=== PATIENT | female | born 1960 | race African-American/Black ===

== ENCOUNTER 2018-04-27 15:06 | Inpatient (IN) | payer OTHER ==
[2018-04-27 16:00] LABS: ADD MAN DIFF? NO
[2018-04-27 16:07] LABS: BASO % 0 % (0-3); EOS # 0.1 x10^3/uL (0.0-0.7); EOS % 1 % (0-3); HEMATOCRIT 38.9 % (36.0-47.0); HEMOGLOBIN 13.5 g/dL (12.0-15.5); LYMPH # 2.3 x10^3/uL (1.0-4.8); LYMPH % 26 % (24-48); MEAN CORPUSCULAR HEMOGLOBIN 32 pg (25-35); MEAN CORPUSCULAR HGB CONC 35 g/dL (31-37); MEAN CORPUSCULAR VOLUME 93 fL (79-100); MONO # 0.7 x10^3/uL (0.0-1.1); MONO % 8 % (0-9); NEUT # 5.8 x10^3uL (1.8-7.7); NEUT % 66 % (31-73); PLATELET COUNT 190 x10^3/uL (140-400); RED BLOOD COUNT 4.17 x10^6/uL (3.50-5.40); RED CELL DISTRIBUTION WIDTH 13.1 % (11.5-14.5); WHITE BLOOD COUNT 8.9 x10^3/uL (4.0-11.0)
[2018-04-27 16:09] LABS: BILIRUBIN,URINE NEGATIVE (NEG); CLARITY,URINE CLEAR; COLOR,URINE YELLOW; GLUCOSE,URINE NEGATIVE (NEG); NITRITE,URINE NEGATIVE (NEG); PH,URINE 7.5; PROTEIN,URINE NEGATIVE (NEG-TRACE)
[2018-04-27] MEDS: ONDANSETRON PF 4 MG/2 ML VIAL. IV (16:09)
[2018-04-27] MEDS: fentaNYL PF VIAL 100 MCG/2 ML VIAL IV ×4 (16:10→23:31)
[2018-04-27 16:19] LABS: ANION GAP 5 (6-14); BLOOD UREA NITROGEN 16 mg/dL (7-20); BUN/CREATININE RATIO 20 (6-20); CALCIUM 9.2 mg/dL (8.5-10.1); CARBON DIOXIDE 31 mmol/L (21-32); CHLORIDE 103 mmol/L (98-107); CREATININE 0.8 mg/dL (0.6-1.0); GFR 90.1; GLUCOSE 90 mg/dL (70-99); POTASSIUM 3.1 mmol/L (3.5-5.1); SODIUM 139 mmol/L (136-145)
[2018-04-27 16:25] LABS: ALBUMIN 3.9 g/dL (3.4-5.0); ALBUMIN/GLOBULIN RATIO 1.2 (1.0-1.7); ALK PHOS 76 U/L (46-116); ALT (SGPT) 29 U/L (14-59); AST (SGOT) 15 U/L (15-37); LIPASE 150 U/L (73-393); TOTAL BILIRUBIN 0.3 mg/dL (0.2-1.0); TOTAL PROTEIN 7.1 g/dL (6.4-8.2)
[2018-04-27 16:28] LABS: BACTERIA,URINE FEW /HPF (0-FEW); RBC,URINE 0 /HPF (0-2); SQUAMOUS EPITHELIAL CELL,UR FEW /LPF; WBC,URINE 0 /HPF (0-4)
[2018-04-27] MEDS: IOHEXOL 300 MG/ML 100ML VIAL. IV (16:42)
[2018-04-27] MEDS ORDERED: CONTRAST GIVEN. MC (16:45)
[2018-04-27] MEDS: POTASSIUM CHLORIDE 20 MEQ TABLET.ER. PO (17:14)
[2018-04-27] MEDS: IV NORMAL SALINE 1000ML BAG 1,000 ML IV (17:15)
[2018-04-27] MEDS ORDERED: ACETAMINOPHEN 325 MG TABLET. PO (17:30)
[2018-04-27] MEDS ORDERED: fentaNYL PF VIAL 100 MCG/2 ML VIAL IV (17:30)
[2018-04-27] MEDS ORDERED: ONDANSETRON PF 4 MG/2 ML VIAL. IV (17:30)
[2018-04-27] MEDS ORDERED: PIP/TAZO PER PHARMACY MC (17:30)
[2018-04-27] MEDS ORDERED: ZOLPIDEM 5 MG TABLET. PO (17:30)
[2018-04-27] MEDS: CIPROFLOXACIN 400MG PREMIX 200 ML IV (17:40)
[2018-04-27] MEDS: oxyCODONE/APAP 5/325 1 TAB TABLET PO (18:40)
[2018-04-27] MEDS: PIPERACILLIN/TAZOBACTAM 3.375 GM in IV NORMAL SALINE 50ML 50 ML IV ×2 (19:36→23:31)
[2018-04-27] MEDS: POTASSIUM CL 30MEQ D5-0.45NACL 1,000 ML IV (19:36)
[2018-04-27] MEDS: FLUCONAZOLE 100 MG TABLET. PO (21:52)
[2018-04-27] MEDS: LACTOBACILLUS RHAMNOSUS GG 1 CAPSULE. PO (21:52)
[2018-04-27] MEDS: traZODone 100 MG TABLET. PO (21:53)
[2018-04-28] MEDS: fentaNYL PF VIAL 100 MCG/2 ML VIAL IV ×6 (03:14→20:13)
[2018-04-28] MEDS: ONDANSETRON PF 4 MG/2 ML VIAL. IV ×2 (03:24→17:38)
[2018-04-28 05:25] LABS: ADD MAN DIFF? NO
[2018-04-28 05:41] LABS: BASO % 1 % (0-3); EOS # 0.1 x10^3/uL (0.0-0.7); EOS % 1 % (0-3); HEMATOCRIT 35.3 % (36.0-47.0); HEMOGLOBIN 12.1 g/dL (12.0-15.5); LYMPH # 1.2 x10^3/uL (1.0-4.8); LYMPH % 15 % (24-48); MEAN CORPUSCULAR HEMOGLOBIN 33 pg (25-35); MEAN CORPUSCULAR HGB CONC 34 g/dL (31-37); MEAN CORPUSCULAR VOLUME 96 fL (79-100); MONO # 0.7 x10^3/uL (0.0-1.1); MONO % 8 % (0-9); NEUT % 75 % (31-73); PLATELET COUNT 149 x10^3/uL (140-400); RED BLOOD COUNT 3.69 x10^6/uL (3.50-5.40); RED CELL DISTRIBUTION WIDTH 13.2 % (11.5-14.5)
[2018-04-28 05:59] LABS: ALBUMIN 3.4 g/dL (3.4-5.0); ALBUMIN/GLOBULIN RATIO 1.4 (1.0-1.7); ALK PHOS 69 U/L (46-116); ALT (SGPT) 30 U/L (14-59); ANION GAP 9 (6-14); AST (SGOT) 25 U/L (15-37); BLOOD UREA NITROGEN 14 mg/dL (7-20); BUN/CREATININE RATIO 18 (6-20); CALCIUM 8.5 mg/dL (8.5-10.1); CARBON DIOXIDE 26 mmol/L (21-32); CHLORIDE 104 mmol/L (98-107); CREATININE 0.8 mg/dL (0.6-1.0); GFR 90.1; GLUCOSE 125 mg/dL (70-99); POTASSIUM 3.8 mmol/L (3.5-5.1); SODIUM 139 mmol/L (136-145); TOTAL BILIRUBIN 0.6 mg/dL (0.2-1.0); TOTAL PROTEIN 5.8 g/dL (6.4-8.2)
[2018-04-28] MEDS: PIPERACILLIN/TAZOBACTAM 3.375 GM in IV NORMAL SALINE 50ML 50 ML IV ×3 (06:07→17:39)
[2018-04-28] MEDS: LEVOTHYROXINE 25 MCG TABLET. PO (07:42)
[2018-04-28] MEDS: oxyCODONE/APAP 5/325 1 TAB TABLET PO ×2 (07:44→13:00)
[2018-04-28] MEDS: IV NORMAL SALINE 1000ML BAG 1,000 ML IV ×4 (08:45→18:45)
[2018-04-28] MEDS ORDERED: TRIAMTERENE/HCTZ 37.5/25MG TABLET. PO (09:00)
[2018-04-28] MEDS: LACTOBACILLUS RHAMNOSUS GG 1 CAPSULE. PO ×2 (09:55→21:03)
[2018-04-28] MEDS: FLUCONAZOLE 100 MG TABLET. PO (09:55)
[2018-04-28] MEDS: diphenhydrAMINE HCL 25 MG CAPSULE PO (18:42)
[2018-04-28] MEDS: traZODone 50 MG TABLET. PO (21:03)
[2018-04-29] MEDS: PIPERACILLIN/TAZOBACTAM 3.375 GM in IV NORMAL SALINE 50ML 50 ML IV ×4 (00:05→17:33)
[2018-04-29] MEDS: IV NORMAL SALINE 1000ML BAG 1,000 ML IV ×2 (00:08→12:30)
[2018-04-29] MEDS: fentaNYL PF VIAL 100 MCG/2 ML VIAL IV (01:09)
[2018-04-29] MEDS: oxyCODONE/APAP 5/325 1 TAB TABLET PO ×4 (06:11→21:28)
[2018-04-29] MEDS: LEVOTHYROXINE 25 MCG TABLET. PO (06:19)
[2018-04-29 06:52] LABS: ADD MAN DIFF? NO
[2018-04-29 06:57] LABS: BASO % 0 % (0-3); EOS # 0.1 x10^3/uL (0.0-0.7); EOS % 1 % (0-3); HEMATOCRIT 32.6 % (36.0-47.0); HEMOGLOBIN 11.2 g/dL (12.0-15.5); LYMPH % 27 % (24-48); MEAN CORPUSCULAR HEMOGLOBIN 33 pg (25-35); MEAN CORPUSCULAR HGB CONC 34 g/dL (31-37); MEAN CORPUSCULAR VOLUME 96 fL (79-100); MONO # 0.6 x10^3/uL (0.0-1.1); MONO % 8 % (0-9); NEUT # 4.6 x10^3uL (1.8-7.7); NEUT % 63 % (31-73); PLATELET COUNT 143 x10^3/uL (140-400); WHITE BLOOD COUNT 7.4 x10^3/uL (4.0-11.0)
[2018-04-29] MEDS: LACTOBACILLUS RHAMNOSUS GG 1 CAPSULE. PO ×2 (08:13→21:21)
[2018-04-29] MEDS: FLUCONAZOLE 100 MG TABLET. PO (08:13)
[2018-04-29] MEDS: DOCUSATE SODIUM 100 MG CAPSULE. PO (08:13)
[2018-04-29 08:19] LABS: SEDIMENTATION RATE 21 (0-25)
[2018-04-29] MEDS ORDERED: CONTRAST GIVEN. MC (11:00)
[2018-04-29] MEDS: IOHEXOL 240 MG/ML 50ML VIAL. PO (11:00)
[2018-04-29] MEDS: KETOROLAC 30 MG/ML INJ. IV ×2 (11:25→17:32)
[2018-04-29] MEDS: traZODone 50 MG TABLET. PO (21:21)
[2018-04-30] MEDS: KETOROLAC 30 MG/ML INJ. IV (00:18)
[2018-04-30] MEDS: PIPERACILLIN/TAZOBACTAM 3.375 GM in IV NORMAL SALINE 50ML 50 ML IV ×5 (00:18→23:46)
[2018-04-30] MEDS: LEVOTHYROXINE 25 MCG TABLET. PO (07:04)
[2018-04-30] MEDS: FLUCONAZOLE 100 MG TABLET. PO (08:57)
[2018-04-30] MEDS: DOCUSATE SODIUM 100 MG CAPSULE. PO (08:57)
[2018-04-30] MEDS: LACTOBACILLUS RHAMNOSUS GG 1 CAPSULE. PO ×2 (08:57→20:45)
[2018-04-30] MEDS: oxyCODONE/APAP 5/325 1 TAB TABLET PO ×2 (10:32→15:34)
[2018-04-30] MEDS: CIPROFLOXACIN 400MG PREMIX 200 ML IV ×2 (15:39→20:45)
[2018-04-30] MEDS: traZODone 50 MG TABLET. PO (20:45)
[2018-04-30] MEDS: ACETAMINOPHEN 325 MG TABLET. PO (21:33)
[2018-04-30 22:20] LABS: C DIFF BY PCR Negative (Negative)
[2018-05-01] MEDS: PIPERACILLIN/TAZOBACTAM 3.375 GM in IV NORMAL SALINE 50ML 50 ML IV ×2 (05:44→12:00)
[2018-05-01] MEDS: ACETAMINOPHEN 325 MG TABLET. PO (05:44)
[2018-05-01 06:32] LABS: ADD MAN DIFF? NO
[2018-05-01 06:35] LABS: BASO % 0 % (0-3); EOS # 0.1 x10^3/uL (0.0-0.7); EOS % 2 % (0-3); HEMATOCRIT 33.3 % (36.0-47.0); HEMOGLOBIN 11.7 g/dL (12.0-15.5); LYMPH % 43 % (24-48); MEAN CORPUSCULAR HEMOGLOBIN 33 pg (25-35); MEAN CORPUSCULAR HGB CONC 35 g/dL (31-37); MEAN CORPUSCULAR VOLUME 94 fL (79-100); MONO # 0.3 x10^3/uL (0.0-1.1); MONO % 7 % (0-9); NEUT # 2.2 x10^3uL (1.8-7.7); NEUT % 48 % (31-73); PLATELET COUNT 164 x10^3/uL (140-400); RED BLOOD COUNT 3.53 x10^6/uL (3.50-5.40); RED CELL DISTRIBUTION WIDTH 12.6 % (11.5-14.5); WHITE BLOOD COUNT 4.7 x10^3/uL (4.0-11.0)
[2018-05-01] MEDS: LEVOTHYROXINE 25 MCG TABLET. PO (06:53)
[2018-05-01 07:14] LABS: ALBUMIN 3.1 g/dL (3.4-5.0); ALBUMIN/GLOBULIN RATIO 0.9 (1.0-1.7); ALK PHOS 73 U/L (46-116); ALT (SGPT) 39 U/L (14-59); ANION GAP 7 (6-14); AST (SGOT) 27 U/L (15-37); BLOOD UREA NITROGEN 7 mg/dL (7-20); BUN/CREATININE RATIO 8 (6-20); CALCIUM 9.1 mg/dL (8.5-10.1); CARBON DIOXIDE 30 mmol/L (21-32); CHLORIDE 106 mmol/L (98-107); CREATININE 0.9 mg/dL (0.6-1.0); GFR 78.7; GLUCOSE 100 mg/dL (70-99); POTASSIUM 3.6 mmol/L (3.5-5.1); SODIUM 143 mmol/L (136-145); TOTAL BILIRUBIN 0.2 mg/dL (0.2-1.0); TOTAL PROTEIN 6.4 g/dL (6.4-8.2)
[2018-05-01] MEDS: FLUCONAZOLE 100 MG TABLET. PO (08:08)
[2018-05-01] MEDS: LACTOBACILLUS RHAMNOSUS GG 1 CAPSULE. PO (08:08)
[2018-05-01] MEDS: CIPROFLOXACIN 400MG PREMIX 200 ML IV (08:08)
[2018-05-01] MEDS: ONDANSETRON PF 4 MG/2 ML VIAL. IV (09:14)
[2018-05-01] MEDS ORDERED: CIPROFLOXACIN HCL 250 MG TABLET. PO (21:00)
== END 2018-05-01 12:30 | disposition home or self-care (01) | DRG 392 ==
LOC: 5 SOUTH 18:00 → ER 15:06 → 5 SOUTH 17:28
DX: K57.32 Diverticulitis of large intestine without perforation or abscess without bleeding (principal); E87.6 Hypokalemia; E03.9 Hypothyroidism, unspecified; E05.90 Thyrotoxicosis, unspecified without thyrotoxic crisis or storm; E66.9 Obesity, unspecified; G43.909 Migraine, unspecified, not intractable, without status migrainosus; K80.20 Calculus of gallbladder without cholecystitis without obstruction; I10 Essential (primary) hypertension; Z79.899 Other long term (current) drug therapy; Z91.040 Latex allergy status; Z68.39 Body mass index [BMI] 39.0-39.9, adult
CPT/HCPCS: 36415; 74176; 74177; 80053; 81001; 83690; 85025; 85651; 87324; 93005; 96365; 96375; 96376; 99285; 99285-25; J0744; J1885; J2405; J2543; J3010; J3490; J7030; Q0163; Q9966; Q9967